=== PATIENT | male | born 1945 | race Caucasian/White ===

== ENCOUNTER 2025-02-04 10:55 | Emergency (ER) | payer OTHER, MEDICARE ==
[~2025-02-04] VITALS: Ht 182.9 cm; Wt 78.2 kg
[2025-02-04 12:18] LABS: BASOPHILS 0.3 % (0.2-1.2); EOSINOPHILS 0.1 % (0.8-7.0); LYMPHOCYTES 8.9 % (21.8-53.1); MCH 31.6 PG (25.7-32.2); MCHC 32.9 g/dL (32.3-36.5); MCV 96.0 fL (79.0-92.2); MONOCYTES 6.7 % (5.3-12.2); NEUTROPHILS 83.6 % (34.0-67.9); RBC 4.46 M/uL (4.63-6.08)
[2025-02-04 12:34] LABS: BLOOD/HGB, URINE NEGATIVE (Negative); KETONE, URINE SMALL (Negative); LEUK ESTERASE, URINE NEGATIVE (negative); NITRITE, URINE NEGATIVE (negative)
[2025-02-04 12:34] LABS: ALT (SGPT) 23.0 U/L (14-59); AST (SGOT) 17.0 U/L (15-37); GLOMERULAR FILTRATION RATE,EST 88.0 mL/min (>60); PROTEIN, TOTAL 7.3 g/dL (6.4-8.2); UREA NITROGEN 18.0 mg/dL (7-18)
[2025-02-04] MEDS ORDERED: FLOMAX0.4 MG PO (13:22)
[2025-02-04 13:29] VITALS: BP 161/89
== END 2025-02-04 13:44 | disposition home or self-care (01) ==
LOC: ED 10:55
PROVIDERS: Emergency Medicine
DX: K40.90 Unilateral inguinal hernia, without obstruction or gangrene, not specified as recurrent (principal); K59.00 Constipation, unspecified; K42.9 Umbilical hernia without obstruction or gangrene; R33.9 Retention of urine, unspecified
CPT/HCPCS: 36415; 74177; 80053; 81003; 85025; 99284-25; Q9967